=== PATIENT | female | born 1980 | race Asian ===

== ENCOUNTER 2017-06-20 12:50 | Emergency (ER) | payer BC ==
[~2017-06-20] VITALS: Ht 167.6 cm; Wt 59.0 kg
[2017-06-20 13:01] VITALS: BP 126/64
[2017-06-20 13:17] LABS: BASOPHILS # (AUTO) 0.2 K/uL (0.00-0.22); BASOPHILS % (AUTO) 1.7 % (0.0-2.0); EOSINOPHILS # (AUTO) 0.1 K/uL (0-0.4); HEMATOCRIT 37.7 % (36-48); HEMOGLOBIN 12.5 g/dL (12.0-16.0); LYMPHOCYTES # (AUTO) 1.4 K/uL (2.5-16.5); LYMPHOCYTES % (AUTO) 13.8 % (20.5-51.1); MEAN CORPUSCULAR HEMOGLOBIN 27 pg (27-31); MEAN CORPUSCULAR HGB CONC 33 g/dL (33-37); MEAN CORPUSCULAR VOLUME 83 fL (80-94); MONOCYTES # (AUTO) 0.5 K/uL (0.8-1.0); MONOCYTES % (AUTO) 4.7 % (1.7-9.3); NEUTROPHILS # (AUTO) 8.1 K/uL (1.8-7.7); NEUTROPHILS % (AUTO) 78.8 % (42.2-75.2); PLATELET COUNT (AUTO) 257 K/uL (140-450); RED BLOOD CELL COUNT(AUTO) 4.55 MIL/uL (4.20-5.40); RED CELL DISTRIBUTION WIDTH 12.9 % (11.6-13.7); WHITE BLOOD COUNT (AUTO) 10.3 K/uL (4.8-10.8)
[2017-06-20 13:34] LABS: APPEARANCE,URINE CLEAR (CLEAR); BILIRUBIN,URINE NEGATIVE (NEGATIVE); BLOOD, URINE NEGATIVE (NEGATIVE); COLOR,URINE YELLOW (YELLOW); LEUKOCYTE ESTERASE ,URINE NEGATIVE (NEGATIVE); NITRITE, URINE NEGATIVE (NEGATIVE); UGLUCOSE NEGATIVE (NEGATIVE)
[2017-06-20 13:35] LABS: ANION GAP 7.5 (8-16); CARBON DIOXIDE 28.1 mmol/L (21-32); CREATININE 0.7 mg/dL (0.6-1.3); POTASSIUM 3.6 mmol/L (3.5-5.1)
[2017-06-20 13:39] LABS: ALBUMIN 3.8 g/dL (3.4-5.0); TOTAL BILIRUBIN 0.4 mg/dL (0.0-1.0)
--- NOTE | 2017-06-20 15:40 | NUR ---
37/F BIB FAMILY c/o umbilical region sharp pain x TODAY. hx OF ovarian cyst, ENDOMETRIOSIS. DENIES N/V/D; SKIN IS PINK/WARM/DRY; AAOX4 WITH EVEN AND STEADY GAIT; LUNGS CLEAR BL; HR EVEN AND REGULAR; PATIENT STATES PAIN OF 8/10 AT THIS TIME; VSS; PATIENT POSITIONED FOR COMFORT; HOB ELEVATED; BEDRAILS UP X2; BED DOWN. ER MD MADE AWARE OF PT STATUS.
--- NOTE | 2017-06-20 15:42 | NUR ---
PT TAKEN TO US VIA W/C, ACCOMPANIED BY FANCY WIRE DRAWER.
--- NOTE | 2017-06-20 16:05 | NUR ---
Patient back from US via wheelchair.
[2017-06-20] MEDS ORDERED: KETOROLAC 30 MG/ML VIAL IM ONE (16:35)
--- NOTE | 2017-06-20 16:59 | NUR ---
X RAY AT BEDSIDE.
[2017-06-20 17:14] VITALS: BP 107/71
== END 2017-06-20 17:14 | disposition home or self-care (01) ==
LOC: MED 12:50
DX: K59.00 Constipation, unspecified (principal)
CPT/HCPCS: 36415; 74000; 76856; 80053; 81003; 83690; 85025; 96372; 99285; J1885; Q0092